=== PATIENT | male | born 1935 | race African-American/Black ===

== ENCOUNTER 2021-03-20 10:20 | Inpatient (IN) | payer OTHER, SELFPAY ==
[~2021-03-20] VITALS: Ht 167.6 cm; Wt 72.6 kg
[2021-03-20 10:20] VITALS: BP_SYST 130
--- NOTE | 2021-03-20 10:20 | NUR ---
Placed in room 01 . Placed on cardiac catheterization technologist, blood pressure machine and pulse oximeter. To gown for exam. Side rails up.
[2021-03-20] MEDS ORDERED: ONDANSETRON HCL 4 MG/2 ML VIAL IVP ONE (10:30)
--- NOTE | 2021-03-20 10:30 | NUR ---
Pt in Bed 1. Pt has sob. Placed on a non-rebreather 15L and O2 saturation is at 86%. Rt at bedside. ER physician aware. A&Ox4. Skin intact. BS checked and results were 237. 18g placed on right AC. EKG being done at bedside. All other vitals stable. Has hx of DM. NKA. Pt vomiting. Emesis bag at bedside.
--- NOTE | 2021-03-20 10:33 | NUR ---
ER physician at bedside.
--- NOTE | 2021-03-20 10:35 | NUR ---
Covid swab done and sent to lab.
--- NOTE | 2021-03-20 10:55 | NUR ---
Zofran given to pt. RT at bedside.
[2021-03-20 11:01] LABS: BASOPHILS % (AUTO) 0.4 % (0.0-2.0); EOSINOPHILS # (AUTO) 0.1 K/uL (0.0-0.4); EOSINOPHILS % (AUTO) 1.5 % (0.0-4.0); HEMATOCRIT 41.9 % (36-54); HEMOGLOBIN 13.6 g/dL (14.0-18.0); LYMPHOCYTES # (AUTO) 0.8 K/uL (1.0-5.5); LYMPHOCYTES % (AUTO) 10.4 % (20.5-51.5); MEAN CORPUSCULAR HEMOGLOBIN 31 pg (27-31); MEAN CORPUSCULAR HGB CONC 32 % (32-36); MEAN CORPUSCULAR VOLUME 96 fL (79.0-98.0); MONOCYTES # (AUTO) 0.1 K/uL (0.0-1.0); MONOCYTES % (AUTO) 1.4 % (1.7-9.3); NEUTROPHILS # (AUTO) 6.4 K/uL (1.8-7.7); NEUTROPHILS % (AUTO) 86.3 % (40.0-70.0); PLATELET COUNT (AUTO) 119 K/uL (130-430); RED BLOOD CELL COUNT(AUTO) 4.36 MIL/uL (4.2-6.2); RED CELL DISTRIBUTION WIDTH 15.3 % (9.0-15.0); WHITE BLOOD COUNT (AUTO) 7.4 K/uL (4.8-10.8)
--- NOTE | 2021-03-20 11:17 | NUR ---
ABG done and ER physician gave order to place pt on a BIPAP. RT made aware.
[2021-03-20 11:47] LABS: ANION GAP 11 (5-15); CALCIUM 8.6 mg/dL (8.4-11.0); CHLORIDE 110 mmol/L (98-107); CREATININE 1.88 mg/dL (0.55-1.30); GLUCOSE 235 mg/dL (70-99); SODIUM SERUM 144 mmol/L (136-145); UREA NITROGEN, BLOOD 27 mg/dL (8-21)
[2021-03-20 11:56] LABS: ALANINE AMINOTRANSFERASE 17 U/L (12-78); ASPARTATE AMINOTRANSFERASE 16 U/L (10-37); TOTAL BILIRUBIN 0.4 mg/dL (0.0-1.0)
--- NOTE | 2021-03-20 12:02 | NUR ---
at bedside. Pt on BIPAP and O2 saturation is now at 94%.
[2021-03-20] MEDS ORDERED: CARV6.2554 PO (12:03)
[2021-03-20] MEDS ORDERED: MONT-40 PO (12:03)
[2021-03-20] MEDS ORDERED: FOLI-43 PO (12:03)
[2021-03-20] MEDS ORDERED: LANS30CA53 PO (12:03)
[2021-03-20] MEDS ORDERED: VITD2000 PO (12:03)
[2021-03-20] MEDS ORDERED: ROSU20TA2 PO (12:03)
[2021-03-20] MEDS ORDERED: FINA5TAB3 PO (12:03)
[2021-03-20] MEDS ORDERED: FAMO-279 PO (12:03)
--- NOTE | 2021-03-20 12:04 | NUR ---
Warm blankets given to pt.
[2021-03-20] MEDS ORDERED: *HEPARIN PER PHARMACY XX ONE (13:00)
--- NOTE | 2021-03-20 13:20 | NUR ---
Daughter at bedside.
--- NOTE | 2021-03-20 13:31 | NUR ---
PCR test done and sent to lab.
--- NOTE | 2021-03-20 13:42 | NUR ---
Levo initiated 100ml/hr
[2021-03-20] MEDS ORDERED: ONDANSETRON HCL 4 MG/2 ML VIAL IVP PRN (13:45)
[2021-03-20] MEDS ORDERED: MUPIROCIN 2% TOPICAL OINTMENT 22 GM NS PRN (13:45)
[2021-03-20] MEDS ORDERED: ACETAMINOPHEN 325 MG TABLET PO PRN (13:45)
[2021-03-20] MEDS ORDERED: LORazepam 2 MG/ML VIAL IVP PRN (13:45)
[2021-03-20] MEDS ORDERED: DOCUSATE SODIUM 100 MG CAPSULE PO PRN (13:45)
[2021-03-20] MEDS ORDERED: POTASSIUM CHLORIDE 20 MEQ TAB.PRT.SR PO PRN (13:45)
[2021-03-20] MEDS ORDERED: DEXTROSE 50% JECT 50 ML DISP.SYRIN IVP PRN ×2 (13:45)
[2021-03-20] MEDS ORDERED: INSULIN LISPRO SLIDING SCALE 100 UNITS/ML VIAL (humaLOG) SUBCUT PRN (13:45)
[2021-03-20] MEDS ORDERED: ZOLPIDEM TARTRATE 5 MG TABLET PO PRN (13:45)
[2021-03-20] MEDS ORDERED: MORPHINE 2 MG/ML INJ. SYRINGE IVP PRN ×2 (13:45)
[2021-03-20] MEDS ORDERED: IPRATROPIUM/ALBUTEROL SULFATE 3 ML AMPUL.NEB (DUONEB) INH PRN (13:45)
[2021-03-20] MEDS ORDERED: MAGNESIUM SULFATE 50 ML IV PRN (13:45)
--- NOTE | 2021-03-20 14:54 | NUR ---
Called pharmacy and let them know that we are still waiting for pt's medication (Heparin). They are aware and stated they will bring med as soon as possible.
[2021-03-20] MEDS ORDERED: HEPARIN SODIUM,PORCINE 5,000 UNITS/ML VIAL IV ONE (15:30)
[2021-03-20] MEDS ORDERED: HEPARIN 25,000 UNITS in 250 ML PREMIX IV PRN (15:30)
--- NOTE | 2021-03-20 15:44 | NUR ---
Pt started on heparin drip 13ml/hr.
[2021-03-20] MEDS: NACL 0.9% 1,000 ML IV SCH (16:15)
--- NOTE | 2021-03-20 19:08 | NUR ---
Gave report to [place] to assume care.
[2021-03-20] MEDS ORDERED: HEPARIN SODIUM,PORCINE 5,000 UNITS/ML VIAL SUBCUT SCH (21:00)
--- NOTE | 2021-03-20 21:39 | NUR ---
# 20 gauge angiocath placed to RIGHT HAND. Use of asceptic technique. Opsite placed over site. Blood return noted. Flushed with 10 cc of normal saline. No evidence of infiltration noted. Patient tolerated well.
--- NOTE | 2021-03-21 03:05 | NUR ---
warm blankets given to pt.
--- NOTE | 2021-03-21 04:46 | NUR ---
Patient moved to room 6
--- NOTE | 2021-03-21 05:10 | NUR ---
Patient is on 100% bipap FiO2. IPAP set to 14 and EPAP set to 7 at this time.
--- NOTE | 2021-03-21 06:58 | NUR ---
BG checked at 0655 and it was 131. No insulin administered at this time.
--- NOTE | 2021-03-21 07:11 | NUR ---
Pt taken to VQ scan.
[2021-03-21 07:16] LABS: ANION GAP 8 (5-15); CALCIUM 8.2 mg/dL (8.4-11.0); CHLORIDE 111 mmol/L (98-107); CREATININE 3.32 mg/dL (0.55-1.30); GLUCOSE 146 mg/dL (70-99); POTASSIUM 4.9 mmol/L (3.5-5.1); SODIUM SERUM 144 mmol/L (136-145); UREA NITROGEN, BLOOD 42 mg/dL (8-21)
[2021-03-21 07:24] LABS: BASOPHILS % (AUTO) 0.1 % (0.0-2.0); EOSINOPHILS # (AUTO) 0.3 K/uL (0.0-0.4); EOSINOPHILS % (AUTO) 4.5 % (0.0-4.0); HEMATOCRIT 33.5 % (36-54); HEMOGLOBIN 11.1 g/dL (14.0-18.0); LYMPHOCYTES # (AUTO) 0.5 K/uL (1.0-5.5); LYMPHOCYTES % (AUTO) 9.1 % (20.5-51.5); MEAN CORPUSCULAR HEMOGLOBIN 32 pg (27-31); MEAN CORPUSCULAR HGB CONC 33 % (32-36); MEAN CORPUSCULAR VOLUME 95 fL (79.0-98.0); MONOCYTES # (AUTO) 0.5 K/uL (0.0-1.0); MONOCYTES % (AUTO) 8.1 % (1.7-9.3); NEUTROPHILS # (AUTO) 4.7 K/uL (1.8-7.7); NEUTROPHILS % (AUTO) 78.2 % (40.0-70.0); RED BLOOD CELL COUNT(AUTO) 3.53 MIL/uL (4.2-6.2); RED CELL DISTRIBUTION WIDTH 15.2 % (9.0-15.0)
--- NOTE | 2021-03-21 07:30 | NUR ---
REPORT GIVEN TO DAY SHIFT RN KENA TO ASSUME CARE
--- NOTE | 2021-03-21 07:48 | NUR ---
Chikis caba in [facility] - 03/21/21 at 0750 by [email or web address] REPORT RECEIVED FROM LYLY WISE, PT A/ZAHIDA, AX RUNNING. FAISAL
[2021-03-21] MEDS: MONTELUKAST 10 MG TABLET PO SCH (09:00)
--- NOTE | 2021-03-21 09:22 | NUR ---
pt in the bed , condition unchanged, VSS, NAD at this time. Monitor attached
--- NOTE | 2021-03-21 10:30 | NUR ---
PT TRANSFERED IN STABLE CONDITION VIA GURNEY ON THE MONITOR WITH RN AND RT TO ICU 7. NO BELOGINGS WITH PT. VSS REPORT GIVEN TO RASHMI DESOUZA ALL QUESTIONS ANSWERED
--- NOTE | 2021-03-21 11:16 | NUR ---
Admission note Pt came to unit from emergency room on a gerney accompanied by staff nurses, awake cognitive and cooperative, no cough or symptoms of covid as per test in ER patient is negative for covid pt is on room air o2 sat95 % he is heparin drip at 1300 units /hr iv on right hand intact he is able to void with no problems all extremities are intact skin is warm and dry no complaints of pain.
[2021-03-21] MEDS: NACL 0.9% 1,000 ML IV SCH (11:45)
[2021-03-21] MEDS: FOLIC ACID 1 MG TABLET PO SCH (12:00)
[2021-03-21] MEDS: ATORVASTATIN 20 MG TABLET PO SCH (12:00)
[2021-03-21] MEDS: LEVOFLOXACIN IN DEXTROSE 5 % 100 ML IV SCH (12:52)
[2021-03-21] MEDS: FINASTERIDE 5 MG TABLET (PROSCAR) PO SCH (13:00)
[2021-03-21] MEDS: CARVEDILOL 6.25 MG TABLET (COREG) PO SCH (13:00)
[2021-03-21 13:49] LABS: PLATELET COUNT (AUTO) 82 K/uL (130-430)
[2021-03-21 20:00] VITALS: BP_SYST 151
[2021-03-21 21:00] VITALS: BP_SYST 131
[2021-03-21] MEDS: methylPREDNISolone SOD SUCC/PF 62.5 MG/ML VIAL IVP SCH ×2 (21:18→21:45)
[2021-03-21 22:00] VITALS: BP_SYST 141
[2021-03-21 23:00] VITALS: BP_SYST 136
[2021-03-22] VITALS (10 sets, daily range): BP systolic 126–182
[2021-03-22] MEDS: CARVEDILOL 6.25 MG TABLET (COREG) PO SCH ×2 (01:23→21:51)
--- NOTE | 2021-03-22 06:05 | NUR ---
pt woke up confused and combative. He threw punches at me and also made a trigger with his fingers and motioned them like he was shooting me three times. Did not allow me to try to start another IV on him. Several nurses attempted to start an IV earlier during the shift but were unsuccessful
[2021-03-22 07:16] LABS: BASOPHILS % (AUTO) 0.1 % (0.0-2.0); EOSINOPHILS # (AUTO) 0.3 K/uL (0.0-0.4); HEMOGLOBIN 9.6 g/dL (14.0-18.0); LYMPHOCYTES # (AUTO) 0.9 K/uL (1.0-5.5); LYMPHOCYTES % (AUTO) 22.1 % (20.5-51.5); MEAN CORPUSCULAR HEMOGLOBIN 31 pg (27-31); MEAN CORPUSCULAR HGB CONC 33 % (32-36); MEAN CORPUSCULAR VOLUME 95 fL (79.0-98.0); MONOCYTES # (AUTO) 0.3 K/uL (0.0-1.0); MONOCYTES % (AUTO) 8.3 % (1.7-9.3); NEUTROPHILS # (AUTO) 2.5 K/uL (1.8-7.7); NEUTROPHILS % (AUTO) 61.5 % (40.0-70.0); PLATELET COUNT (AUTO) 82 K/uL (130-430); RED BLOOD CELL COUNT(AUTO) 3.04 MIL/uL (4.2-6.2); RED CELL DISTRIBUTION WIDTH 15.6 % (9.0-15.0); WHITE BLOOD COUNT (AUTO) 4.1 K/uL (4.8-10.8)
[2021-03-22 08:35] LABS: ANION GAP 7 (5-15); CALCIUM 8.4 mg/dL (8.4-11.0); CHLORIDE 111 mmol/L (98-107); CREATININE 3.24 mg/dL (0.55-1.30); GLUCOSE 108 mg/dL (70-99); POTASSIUM 5.6 mmol/L (3.5-5.1); SODIUM SERUM 141 mmol/L (136-145); UREA NITROGEN, BLOOD 49 mg/dL (8-21)
[2021-03-22] MEDS: FINASTERIDE 5 MG TABLET (PROSCAR) PO SCH (09:00)
[2021-03-22] MEDS: LEVOFLOXACIN IN DEXTROSE 5 % 100 ML IV SCH (10:08)
[2021-03-22] MEDS: MONTELUKAST 10 MG TABLET PO SCH (10:09)
[2021-03-22] MEDS: TAMSULOSIN HCL 0.4 MG CAP PO SCH (10:10)
[2021-03-22] MEDS: FOLIC ACID 1 MG TABLET PO SCH (10:10)
[2021-03-22] MEDS: NACL 0.9% 1,000 ML IV SCH ×2 (10:10→18:27)
[2021-03-22] MEDS: ATORVASTATIN 20 MG TABLET PO SCH (10:10)
[2021-03-22] MEDS: methylPREDNISolone SOD SUCC/PF 62.5 MG/ML VIAL IVP SCH ×3 (10:13→21:44)
--- NOTE | 2021-03-22 10:57 | NUR ---
Nutrition Update : Ermias Scale: 14 noted Pt admitted for Acute Respiratory Failure. Diet: [facility] BMI: 25.8 kg/m2 RD to follow per nutrition care standards.
[2021-03-22 12:20] LABS: BILIRUBIN,URINE NEGATIVE (NEGATIVE); BLOOD, URINE 1+ (NEGATIVE); CLARITY/URINE CLEAR (CLEAR); COLOR,URINE YELLOW (YELLOW); GLUCOSE,URINE NEGATIVE (NEGATIVE); KETONES,URINE NEGATIVE (NEGATIVE); LEUKOCYTE ESTERASE ,URINE NEGATIVE (NEGATIVE); NITRITE, URINE NEGATIVE (NEGATIVE); PROTEIN URINE 1+ (NEGATIVE); UROBILINOGEN,URINE 0.2 (0.2-1.0)
[2021-03-22 12:39] LABS: BACTERIA,URINE RARE /HPF (None Seen); WBC,URINE 0-3 /HPF (0-3)
[2021-03-22 12:40] LABS: MUCUS,URINE 1+ /LPF (None Seen)
[2021-03-22] MEDS ORDERED: SODIUM POLYSTYRENE SULFONATE 15 GM/60 ML UDBTL PO ONE (12:45)
[2021-03-22] MEDS: INSULIN LISPRO SLIDING SCALE 100 UNITS/ML VIAL (humaLOG) SUBCUT PRN ×2 (18:34→21:45)
--- NOTE | 2021-03-22 19:52 | NUR ---
PT TO TELE: PT DOWNGRADED FROM ICU TO TELE. PT TRANSFERRED VIA W/C WITH ALL BELONGINGS. REPORT GIVEN TO RN USING SBAR REPORTING. ALL SAFETY PRECAUTIONS ENFORCED.
--- NOTE | 2021-03-22 20:00 | NUR ---
REC'D PT FROM ICU NURSE, AOX2, NO S/S OF DISTRESS OR DISCOMFORT NOTED, BREATHING EVEN AND UNLABORED, SINUS RHYTHM ON TELE MONITOR, SATURATION ON ROOM AIR, DENIES PAIN, SIDE RAILS UP X4, BED IN LOWEST POSITION, REPOSITIONED PT PER COMFORT, URINAL WITHIN REACH, CALL LIGHT WITHIN IMMEDIATE REACH, ENCOURAGED PT TO CALL FOR ASSISTANCE WHEN NEEDED, PT VERBALIZED UNDERSTANDING, WILL CONTINUE TO MONITOR.
--- NOTE | 2021-03-23 | NUR ---
NO CHANGES NOTED FROM PREVIOUS ASSESSMENT, NO S/S OF DISTRESS OR DISCOMFORT NOTED, BREATHING EVEN AND UNLABORED, PT SLEEPING COMFORTABLY IN BED, REPOSITIONED PER COMFORT, WILL CONTINUE TO MONITOR.
[2021-03-23 00:50] VITALS: BP_SYST 164
--- NOTE | 2021-03-23 04:00 | NUR ---
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
[2021-03-23 04:06] VITALS: BP_SYST 164
[2021-03-23] MEDS: methylPREDNISolone SOD SUCC/PF 62.5 MG/ML VIAL IVP SCH ×2 (06:33→14:04)
[2021-03-23] MEDS: NACL 0.9% 1,000 ML IV SCH ×2 (06:34→13:15)
--- NOTE | 2021-03-23 07:19 | NUR ---
SHIFT REPORT REPORT GIVEN TO MALIK DESOUZA FOR CONTINUITY OF CARE ALL QUESTIONS WERE ANSWERED AND RN VERBALIZED UNDERSTANDING.
[2021-03-23] MEDS: INSULIN LISPRO SLIDING SCALE 100 UNITS/ML VIAL (humaLOG) SUBCUT PRN ×2 (07:35→11:57)
[2021-03-23 07:57] LABS: BASOPHILS % (AUTO) 0.2 % (0.0-2.0); HEMATOCRIT 29.1 % (36-54); HEMOGLOBIN 9.8 g/dL (14.0-18.0); LYMPHOCYTES # (AUTO) 0.4 K/uL (1.0-5.5); LYMPHOCYTES % (AUTO) 4.7 % (20.5-51.5); MEAN CORPUSCULAR HEMOGLOBIN 32 pg (27-31); MEAN CORPUSCULAR HGB CONC 34 % (32-36); MEAN CORPUSCULAR VOLUME 95 fL (79.0-98.0); MONOCYTES # (AUTO) 0.1 K/uL (0.0-1.0); MONOCYTES % (AUTO) 0.9 % (1.7-9.3); NEUTROPHILS # (AUTO) 7.9 K/uL (1.8-7.7); NEUTROPHILS % (AUTO) 94.2 % (40.0-70.0); PLATELET COUNT (AUTO) 102 K/uL (130-430); RED BLOOD CELL COUNT(AUTO) 3.07 MIL/uL (4.2-6.2); RED CELL DISTRIBUTION WIDTH 15.3 % (9.0-15.0); WHITE BLOOD COUNT (AUTO) 8.3 K/uL (4.8-10.8)
[2021-03-23 08:00] VITALS: BP_SYST 168
--- NOTE | 2021-03-23 08:00 | NUR ---
OPENING NOTE PT awake and sitting up eating breakfast. AxO x4. No signs of shortness of breath on room air, patient denies pain. IV site is clean, dry, intact, and running prescribed fluids. Updated patient on plan of care for the day. Safety checks made and call light within reach.
[2021-03-23 08:07] LABS: ANION GAP 11 (5-15); CALCIUM 8.2 mg/dL (8.4-11.0); CHLORIDE 109 mmol/L (98-107); CREATININE 2.42 mg/dL (0.55-1.30); GLUCOSE 222 mg/dL (70-99); POTASSIUM 4.1 mmol/L (3.5-5.1); SODIUM SERUM 142 mmol/L (136-145); UREA NITROGEN, BLOOD 49 mg/dL (8-21)
[2021-03-23] MEDS ORDERED: CARV6.2554 PO (08:56)
[2021-03-23] MEDS ORDERED: ALBMDI INH (08:56)
[2021-03-23] MEDS ORDERED: cloNIDine HCL 0.1 MG TABLET PO PRN (09:00)
[2021-03-23] MEDS: CARVEDILOL 6.25 MG TABLET (COREG) PO SCH (09:11)
[2021-03-23] MEDS: MONTELUKAST 10 MG TABLET PO SCH (09:11)
[2021-03-23] MEDS: FINASTERIDE 5 MG TABLET (PROSCAR) PO SCH (09:12)
[2021-03-23] MEDS: ATORVASTATIN 20 MG TABLET PO SCH (09:12)
[2021-03-23] MEDS: FOLIC ACID 1 MG TABLET PO SCH (09:12)
[2021-03-23] MEDS: TAMSULOSIN HCL 0.4 MG CAP PO SCH (09:12)
[2021-03-23] MEDS: LEVOFLOXACIN IN DEXTROSE 5 % 100 ML IV SCH (09:32)
--- NOTE | 2021-03-23 10:18 | NUR ---
Kerry Planning: DCP faxed pt referral to [facility] [phone] DCP to follow up. Addendum: 03/23/21 at 1435 by Hamida Waddell DP [facility] [phone] Accepted pt
[2021-03-23 12:00] VITALS: BP_SYST 151
--- NOTE | 2021-03-23 13:20 | NUR ---
ROUNDS PT sitting in bed eating lunch. No sign of respiratory distress on room air, PT denies pain. IV site is clean, dry, intact, and running prescribed fluids. Safety checks made and call light left within reach.
--- NOTE | 2021-03-23 14:37 | NUR ---
CM: PT HAS HOME HEALTH SET-UP FOR PT AND SAFETY EVAL WITH [facility].
[2021-03-23 15:27] VITALS: BP_SYST 134
[2021-03-23 16:00] VITALS: BP_SYST 134
--- NOTE | 2021-03-23 16:30 | NUR ---
D/C Patient Patient given medication reconciliation form and D/C instructions. Exit Care provided. Patient and verbalized understanding. MD discussed with patient the results and treatment provided. Ambulatory with steady gait for discharge to home. Patient in stable condition, ID band removed. IV catheter removed, intact and dressing applied, no active bleeding. Tele box removed and returned to intensive care unit registered nurse. Patient educated on pain management. All belongings sent with patient. Patient transported to home via private auto.
== END 2021-03-23 16:45 | disposition home health service (06) | DRG 189 ==
LOC: SED 10:20 → SIC 13:35 → SMU 03-22 19:52 → STU 03-22 20:25
PROVIDERS: ADMIT General Practice; ATTEND General Practice
PROC: 5A09357 Assistance with Respiratory Ventilation, Less than 24 Consecutive Hours, Continuous Positive Airway Pressure (ICD-10-PCS; principal; 2021-03-20)
PROC: 5A09357 Assistance with Respiratory Ventilation, Less than 24 Consecutive Hours, Continuous Positive Airway Pressure (ICD-10-PCS; 2021-03-21)
DX: J96.01 Acute respiratory failure with hypoxia (principal); N17.0 Acute kidney failure with tubular necrosis; E44.1 Mild protein-calorie malnutrition; J44.1 Chronic obstructive pulmonary disease with (acute) exacerbation; J45.901 Unspecified asthma with (acute) exacerbation; J44.0 Chronic obstructive pulmonary disease with (acute) lower respiratory infection; E78.5 Hyperlipidemia, unspecified; I25.10 Atherosclerotic heart disease of native coronary artery without angina pectoris; N40.0 Benign prostatic hyperplasia without lower urinary tract symptoms; I12.9 Hypertensive chronic kidney disease with stage 1 through stage 4 chronic kidney disease, or unspecified chronic kidney disease; E11.22 Type 2 diabetes mellitus with diabetic chronic kidney disease; N18.9 Chronic kidney disease, unspecified; K21.9 Gastro-esophageal reflux disease without esophagitis; Z20.822 Contact with and (suspected) exposure to COVID-19; Z79.899 Other long term (current) drug therapy; I25.2 Old myocardial infarction; Z95.818 Presence of other cardiac implants and grafts; Z68.25 Body mass index [BMI] 25.0-25.9, adult
CPT/HCPCS: 36415; 36600; 71045; 76770; 78579; 78580-TC; 80048; 80053; 81000; 82803-TC; 82962; 83735; 83880; 84484; 85025; 85379; 85730-TC; 93005; 94660; 94760; 96374; 96375; 99291; A9539; A9540; G0378; J1644; J1956; J2405; J2930; U0003

== ENCOUNTER 2021-09-21 07:26 | Inpatient (IN) | payer OTHER ==
[~2021-09-21] VITALS: Ht 172.7 cm; Wt 71.2 kg
[2021-09-21 07:26] VITALS: BP_SYST 155
[~2021-09-21 07:26] MED LIST: ALBMDI INH; CARV6.2554 PO; FAMO-279 PO; FINA5TAB3 PO; FOLI-43 PO; LANS30CA53 PO; MONT-40 PO; ROSU20TA2 PO; VITD2000 PO
[2021-09-21 07:58] LABS: BASOPHILS % (AUTO) 0.5 % (0.0-2.0); EOSINOPHILS # (AUTO) 0.3 K/uL (0.0-0.4); EOSINOPHILS % (AUTO) 6.6 % (0.0-4.0); HEMATOCRIT 34.8 % (36-54); HEMOGLOBIN 11.5 g/dL (14.0-18.0); LYMPHOCYTES # (AUTO) 0.5 K/uL (1.0-5.5); LYMPHOCYTES % (AUTO) 10.5 % (20.5-51.5); MEAN CORPUSCULAR HEMOGLOBIN 32 pg (27-31); MEAN CORPUSCULAR HGB CONC 33 % (32-36); MEAN CORPUSCULAR VOLUME 97 fL (79.0-98.0); MONOCYTES # (AUTO) 0.4 K/uL (0.0-1.0); MONOCYTES % (AUTO) 8.6 % (1.7-9.3); NEUTROPHILS # (AUTO) 3.3 K/uL (1.8-7.7); NEUTROPHILS % (AUTO) 73.8 % (40.0-70.0); PLATELET COUNT (AUTO) 94 K/uL (130-430); RED BLOOD CELL COUNT(AUTO) 3.58 MIL/uL (4.2-6.2); RED CELL DISTRIBUTION WIDTH 16.2 % (9.0-15.0); WHITE BLOOD COUNT (AUTO) 4.4 K/uL (4.8-10.8)
[2021-09-21] MEDS ORDERED: IOHEXOL 350 mgI/mL, 150 ML INFUS..BTL IV ONE (08:00)
[2021-09-21 08:03] LABS: ANION GAP 21 (5-15); CALCIUM 8.5 mg/dL (8.4-11.0); CHLORIDE 108 mmol/L (98-107); CREATININE 2.95 mg/dL (0.55-1.30); GLUCOSE 123 mg/dL (70-99); POTASSIUM 4.1 mmol/L (3.5-5.1); SODIUM SERUM 151 mmol/L (136-145); UREA NITROGEN, BLOOD 43 mg/dL (8-21)
[2021-09-21 08:12] LABS: ALANINE AMINOTRANSFERASE 8 U/L (12-78); ASPARTATE AMINOTRANSFERASE 18 U/L (10-37); TOTAL BILIRUBIN 0.4 mg/dL (0.0-1.0)
[2021-09-21 09:41] LABS: BILIRUBIN,URINE NEGATIVE (NEGATIVE); COLOR,URINE YELLOW (YELLOW); GLUCOSE,URINE NEGATIVE (NEGATIVE); KETONES,URINE NEGATIVE (NEGATIVE); LEUKOCYTE ESTERASE ,URINE NEGATIVE (NEGATIVE); NITRITE, URINE NEGATIVE (NEGATIVE); PH,URINE 5.5 (5.0-8.0); PROTEIN URINE 2+ (NEGATIVE)
[2021-09-21 10:01] LABS: BARBITURATE, URINE NEGATIVE (NEG <=200); BENZODIAZEPINE, URINE NEGATIVE (NEG <=150); CANNABINOID, URINE NEGATIVE (NEG <=50); COCAINE, URINE NEGATIVE (NEG <=150); METHAMPHETAMINES SCREEN,URINE NEGATIVE (NEG <=500); OPIATE, URINE NEGATIVE (NEG <=100); PHENCYCLIDINE SCREEN,URINE NEGATIVE (NEG <=25); UR TRICYCLIC ANTIDEPRESSANTS NEGATIVE (NEG <=300); URINE AMPHETAMINE NEGATIVE (NEG <=500); URINE METHADONE NEGATIVE (NEG <=200); URINE OXYCODONE SCREEN NEGATIVE (NEG <=100); URINE PROPOXYPHENE SCREEN NEGATIVE (NEG <=300)
[2021-09-21 10:09] LABS: BLOOD, URINE TRACE (NEGATIVE); CLARITY/URINE SLIGHTLY CLOUDY (CLEAR)
[2021-09-21] MEDS ORDERED: POTASSIUM CHLORIDE 20 MEQ TAB.PRT.SR PO PRN (10:15)
[2021-09-21] MEDS ORDERED: ACETAMINOPHEN 325 MG TABLET PO PRN ×2 (10:15)
[2021-09-21] MEDS ORDERED: MUPIROCIN 2% TOPICAL OINTMENT 22 GM NS PRN (10:15)
[2021-09-21] MEDS ORDERED: ONDANSETRON HCL 4 MG/2 ML VIAL IVP PRN ×2 (10:15)
[2021-09-21] MEDS ORDERED: ZOLPIDEM TARTRATE 5 MG TABLET PO PRN (10:15)
[2021-09-21] MEDS ORDERED: LORazepam 2 MG/ML VIAL IVP PRN (10:15)
[2021-09-21] MEDS ORDERED: MORPHINE 2 MG/ML INJ. SYRINGE IVP PRN ×3 (10:15)
[2021-09-21] MEDS ORDERED: DOCUSATE SODIUM 100 MG CAPSULE PO PRN (10:15)
[2021-09-21] MEDS ORDERED: MAGNESIUM SULFATE 50 ML IV PRN (10:15)
[2021-09-21] MEDS ORDERED: 0.45% NACL 1,000 ML IV SCH (10:15)
[2021-09-21 10:58] LABS: RBC,URINE 0-3 /HPF (0-3); WBC,URINE NONE SEEN /HPF (0-3)
[2021-09-21 10:59] LABS: BACTERIA,URINE FEW /HPF (None Seen)
[2021-09-21 12:13] VITALS: BP_SYST 163
[2021-09-21 14:00] VITALS: BP_SYST 155
[2021-09-21 16:00] VITALS: BP_SYST 156
[2021-09-21] MEDS ORDERED: DEXTROSE 50% JECT 50 ML DISP.SYRIN IVP PRN (17:15)
[2021-09-21 20:30] VITALS: BP_SYST 142
[2021-09-21] MEDS: ATORVASTATIN 20 MG TABLET PO SCH (22:03)
[2021-09-21] MEDS: CARVEDILOL 6.25 MG TABLET (COREG) PO SCH (22:04)
[2021-09-22 00:59] VITALS: BP_SYST 148
[2021-09-22 07:35] LABS: BASOPHILS % (AUTO) 0.2 % (0.0-2.0); EOSINOPHILS # (AUTO) 0.4 K/uL (0.0-0.4); EOSINOPHILS % (AUTO) 10.3 % (0.0-4.0); HEMATOCRIT 29.3 % (36-54); LYMPHOCYTES # (AUTO) 0.7 K/uL (1.0-5.5); LYMPHOCYTES % (AUTO) 16.6 % (20.5-51.5); MEAN CORPUSCULAR HEMOGLOBIN 33 pg (27-31); MEAN CORPUSCULAR HGB CONC 34 % (32-36); MEAN CORPUSCULAR VOLUME 95 fL (79.0-98.0); MONOCYTES # (AUTO) 0.4 K/uL (0.0-1.0); MONOCYTES % (AUTO) 8.9 % (1.7-9.3); NEUTROPHILS # (AUTO) 2.7 K/uL (1.8-7.7); PLATELET COUNT (AUTO) 85 K/uL (130-430); RED BLOOD CELL COUNT(AUTO) 3.09 MIL/uL (4.2-6.2); RED CELL DISTRIBUTION WIDTH 15.6 % (9.0-15.0); WHITE BLOOD COUNT (AUTO) 4.2 K/uL (4.8-10.8)
[2021-09-22 08:42] VITALS: BP_SYST 151
[2021-09-22] MEDS: ASPIRIN 81 MG TABLET(ECOTRIN) PO SCH (09:00)
[2021-09-22 09:37] LABS: ANION GAP 9 (5-15); CALCIUM 8.8 mg/dL (8.4-11.0); CHLORIDE 112 mmol/L (98-107); CREATININE 2.12 mg/dL (0.55-1.30); GLUCOSE 92 mg/dL (70-99); PHOSPHORUS 2.3 mg/dL (2.7-4.5); POTASSIUM 4.2 mmol/L (3.5-5.1); SODIUM SERUM 144 mmol/L (136-145); UREA NITROGEN, BLOOD 34 mg/dL (8-21)
[2021-09-22] MEDS: MONTELUKAST 10 MG TABLET PO SCH (09:45)
[2021-09-22] MEDS: CARVEDILOL 6.25 MG TABLET (COREG) PO SCH ×2 (10:00→21:37)
[2021-09-22] MEDS: FINASTERIDE 5 MG TABLET (PROSCAR) PO SCH (10:40)
[2021-09-22] MEDS: amLODIPine BESYLATE 5 MG TABLET PO SCH (10:41)
[2021-09-22] MEDS ORDERED: CARVEDILOL 3.125 MG TABLET (COREG) ONE (10:42)
[2021-09-22 12:00] VITALS: BP_SYST 150
[2021-09-22 16:15] VITALS: BP_SYST 149
[2021-09-22 21:00] VITALS: BP_SYST 138
[2021-09-22] MEDS: ATORVASTATIN 20 MG TABLET PO SCH (21:37)
[2021-09-22] MEDS: INSULIN LISPRO SLIDING SCALE 100 UNITS/ML VIAL (humaLOG) SUBCUT PRN (21:40)
[2021-09-23 04:00] VITALS: BP_SYST 0
[2021-09-23] MEDS: INSULIN LISPRO SLIDING SCALE 100 UNITS/ML VIAL (humaLOG) SUBCUT PRN (06:30)
[2021-09-23] MEDS ORDERED: NAPH,MB-DB/K PH,MBDB 250 MG TAB PO ONE (07:00)
[2021-09-23 08:00] VITALS: BP_SYST 161
[2021-09-23] MEDS: MONTELUKAST 10 MG TABLET PO SCH (09:16)
[2021-09-23] MEDS: ASPIRIN 81 MG TABLET(ECOTRIN) PO SCH (09:17)
[2021-09-23] MEDS: FINASTERIDE 5 MG TABLET (PROSCAR) PO SCH (09:17)
[2021-09-23] MEDS: amLODIPine BESYLATE 5 MG TABLET PO SCH (09:17)
[2021-09-23] MEDS: CARVEDILOL 6.25 MG TABLET (COREG) PO SCH (09:18)
[2021-09-23] MEDS ORDERED: ASPI-1393 PO (10:54)
[2021-09-23 12:00] VITALS: BP_SYST 139
[2021-09-23 17:27] VITALS: BP_SYST 151
== END 2021-09-23 18:55 | disposition home health service (06) | DRG 640 ==
LOC: SED 07:26 → SMU 10:12 → STU 11:59
PROVIDERS: ADMIT Family Medicine; ATTEND Family Medicine
DX: E86.0 Dehydration (principal); N17.0 Acute kidney failure with tubular necrosis; G45.9 Transient cerebral ischemic attack, unspecified; E44.1 Mild protein-calorie malnutrition; E87.0 Hyperosmolality and hypernatremia; I10 Essential (primary) hypertension; E78.5 Hyperlipidemia, unspecified; E11.9 Type 2 diabetes mellitus without complications; D64.9 Anemia, unspecified; F03.90 Unspecified dementia, unspecified severity, without behavioral disturbance, psychotic disturbance, mood disturbance, and anxiety; Z20.822 Contact with and (suspected) exposure to COVID-19; N40.0 Benign prostatic hyperplasia without lower urinary tract symptoms; Z79.899 Other long term (current) drug therapy; Z68.23 Body mass index [BMI] 23.0-23.9, adult; R41.0 Disorientation, unspecified
CPT/HCPCS: 36415; 70450-TC; 70496; 70498; 70551; 71045; 76376; 80048; 80053; 80307; 81000; 82140; 82962; 83605; 83735; 84100; 84484; 85025; 87081; 93005; 99285; G0378; J2060; Q9967